=== PATIENT | female | born 1975 | race Caucasian/White ===

== ENCOUNTER 2018-06-03 15:25 | Emergency (ER) | payer MEDICAID ==
[2018-06-03] MEDS ORDERED: NS 1,000 ML IV ONE (15:38)
[2018-06-03] MEDS ORDERED: IOPAMIDOL (ISOVUE-300) 100 ML BTL ONE (17:02)
== END 2018-06-03 17:47 | disposition home or self-care (01) ==
DX: R10.31 Right lower quadrant pain (principal); E86.9 Volume depletion, unspecified